=== PATIENT | male | born 1980 | race Caucasian/White ===

== ENCOUNTER 2024-11-04 15:17 | Emergency (ER) | payer BC ==
[2024-11-04 17:49] LABS: BASOPHILS ABSOLUTE AUTO 0.04 K/uL (0.00-0.20); BASOPHILS PERCENT AUTO 0.6 % (0.0-1.0); EOSINOPHILS ABSOLUTE AUTO 0.22 K/uL (0.00-0.45); EOSINOPHILS PERCENT AUTO 3.3 % (0.0-6.0); HEMATOCRIT 23.1 % (42.0-52.0); HEMOGLOBIN 7.4 g/dL (14.0-18.0); IMMATURE GRAN ABSOLUTE AUTO 0.02 K/uL (0.00-0.05); IMMATURE GRAN PERCENT AUTO 0.3 % (0.0-0.4); LYMPHOCYTES ABSOLUTE AUTO 1.34 K/uL (1.00-4.80); LYMPHOCYTES PERCENT AUTO 19.9 % (24.0-44.0); MEAN CORPUSCULAR VOLUME 87.5 fL (83.0-99.0); MEAN PLATELET VOLUME 8.9 fL (9.4-12.4); MONOCYTES ABSOLUTE AUTO 0.64 K/uL (0.00-0.80); MONOCYTES PERCENT AUTO 9.5 % (0.0-8.0); NEUTROPHILS ABSOLUTE AUTO 4.48 K/uL (1.80-7.70); NEUTROPHILS PERCENT AUTO 66.4 % (41.0-71.0); PLATELET COUNT,PLT 258 K/uL (150-400); RED BLOOD CELL COUNT 2.64 M/uL (4.52-5.90); WHITE BLOOD CELL COUNT,WBC 6.74 K/uL (3.9-11.3)
[2024-11-04 18:34] LABS: A/G RATIO 1.3 (0.9-1.6); ALBUMIN 3.5 g/dL (3.4-5.0); BILIRUBIN TOTAL 0.3 mg/dL (0.2-1.0); CALCIUM 8.8 mg/dL (8.5-10.1); CARBON DIOXIDE,CO2 25.8 mmol/L (21.0-32.0); EST CRCL DRUG DOSING (CG) 102.39 mL/min; MAGNESIUM 2.1 mg/dL (1.8-2.4); POTASSIUM,K 4.2 mmol/L (3.5-5.1); PROTEIN TOTAL,TP 6.2 g/dL (6.4-8.2); TSH ULTRASENSITIVE 1.16 uIU/mL (0.36-3.74)
== END 2024-11-04 20:11 | disposition home or self-care (01) ==
LOC: MW.ED 15:17 → MERGE 15:17 → MW.ED 20:11
DX: D64.9 Anemia, unspecified (principal); I10 Essential (primary) hypertension; Z79.899 Other long term (current) drug therapy; Z75.8 Other problems related to medical facilities and other health care
CPT/HCPCS: 36415; 71045; 71045-26; 80053; 83735; 83880; 84443; 85025; 93005; 93010; 99283; 99285